=== PATIENT | female | born 1945 | race Caucasian/White ===

== ENCOUNTER 2021-01-03 08:44 | Observation (INO) ==
[~2021-01-03 08:44] MED LIST: Buffered Lidocaine 1% SYRIN 1 ml INTRADERM ONE; Dexamethasone IV 4 MG/ML VIAL 1 ml VIAL IV SLOW PU ONE; Famotidine IV 10 MG/ML 2 ml VIAL (20 mg) IV ONE; Lactated Ringers 1000 ml BAG 1,000 ML IV SCH
[2021-01-03] MEDS ORDERED: Dexamethasone IV 4 MG/ML VIAL 1 ml VIAL ONE (08:59)
[2021-01-03] MEDS ORDERED: Famotidine IV 10 MG/ML 2 ml VIAL (20 mg) ONE (09:00)
[2021-01-03] MEDS ORDERED: Succinylcholine 200 mg VIAL 20 mg/ml 10 ml VIAL (200 mg) ONE (09:23)
[2021-01-03] MEDS ORDERED: Lidocaine 2% PF 5 ML VIAL ONE (09:23)
[2021-01-03] MEDS ORDERED: fentaNYL 250 mcg/5 ml 50 MCG/ML 5 ml VIAL (250 MCG) ONE (09:23)
[2021-01-03] MEDS ORDERED: Midazolam 2 mg/2 ml VIAL 1 mg/ml 2 ml VIAL (2 mg) ONE (09:23)
[2021-01-03] MEDS ORDERED: Ondansetron 4 mg VIAL 2 MG/ML 2 ml VIAL ONE (09:23)
[2021-01-03] MEDS ORDERED: Propofol 10 MG/ML 20 ML BTL ONE ×2 (09:23→11:59)
[2021-01-03] MEDS ORDERED: Remifentanil 2 MG VIAL ONE (09:24)
[2021-01-03] MEDS ORDERED: Lidocaine 1% w EPI 1:100,000 MDV 20 ML VIAL ONE (10:58)
[2021-01-03] MEDS ORDERED: Naloxone 0.4 mg VIAL 0.4 mg/ml 1 ml VIAL IV PRN (10:59)
[2021-01-03] MEDS ORDERED: Prochlorperazine 5 mg/ml 2 ml VIAL (10 mg) IV PRN (10:59)
[2021-01-03] MEDS ORDERED: HYDROcodone/ACETAMIN 5/325 mg TAB PO PRN (10:59)
[2021-01-03] MEDS ORDERED: Lidocaine 4% TOPICAL 50 ML TOP.SOLN ONE (11:03)
[2021-01-03] MEDS ORDERED: Phenylephrine 40 mcg/mL 10mL (400mcg) SYRINGE ONE (12:07)
[2021-01-03] MEDS ORDERED: fentaNYL 100 mcg/2 ml 50 MCG/ML VIAL ONE (14:47)
[2021-01-03] MEDS: fentaNYL 100 mcg/2 ml 50 MCG/ML VIAL IV PRN ×2 (14:48→15:16)
[2021-01-03] MEDS ORDERED: Ondansetron ODT 4 mg TAB 4 MG TAB PO PRN (15:34)
[2021-01-03] MEDS ORDERED: oxyCODONE 5 mg/5 ml ORAL.SOLN UDC PO PRN ×2 (15:34→15:37)
[2021-01-03] MEDS ORDERED: Ondansetron 4 mg VIAL 2 MG/ML 2 ml VIAL IV PRN (15:34)
[2021-01-03] MEDS ORDERED: Bimatoprost 0.01% OPHTH (NF) 2.5 ML BTL BOTH EYES SCH (18:00)
[2021-01-03] MEDS: Calcium (OSCAL) 500 mg TAB PO SCH (20:57)
[2021-01-03] MEDS ORDERED: Venlafaxine XR 75 mg PO SCH (21:00)
[2021-01-04 05:14] LABS: ABS Basophils 0.1 10^3/ul (0-0.2); ABS Neutrophils 9.2 10^3/ul (1.5-7.7); Eosinophil % 0.2 %; Hematocrit 40 % (35-47); Hemoglobin 12.9 g/dL (12.0-16.0); Lymphocyte % 9.2 %; Mean Corpuscular HGB Conc 33 g/dL (31-36); Mean Corpuscular Hemoglobin 31 pg (27-31); Mean Corpuscular Volume 95 fL (80-97); Mean Platelet Volume 8.2 fL (7.4-10.4); Platelet Count 265 10^3/uL (150-450); Red Blood Count 4.18 10^6 /uL (3.70-4.87); Red Cell Distribution Width 15 % (10-15); White Blood Count 11.3 10^3/uL (3.5-10.8)
[2021-01-04 05:49] LABS: Albumin 3.7 g/dL (3.2-5.2); Albumin/Globulin Ratio 1.5 (1-3); EGFR African American 61.8 (>60); EGFR Non-African American 51.1 (>60); Globulin 2.5 g/dL (2-4); Potassium 4.1 mmol/L (3.5-5.0); Total Bilirubin 0.5 mg/dL (0.2-1.0); Total Protein 6.2 g/dL (6.4-8.9)
[2021-01-04] MEDS: Calcium (OSCAL) 500 mg TAB PO SCH ×2 (08:04→14:04)
[2021-01-04 11:56] VITALS: BP 124/75
[2021-01-04] MEDS ORDERED: NS 0.9% 500 ml BAG 500 ML IV ONE (13:10)
== END 2021-01-04 15:35 | disposition home or self-care (01) ==
LOC: OR 08:44 → SSU 08:44
PROVIDERS: ADMIT Otolaryngology; ATTEND Hospitalist

== ENCOUNTER 2021-01-17 10:47 | Observation (INO) ==
[2021-01-17] MEDS ORDERED: NS 0.9% 1000 ml BAG 1,000 ML IV ONE (14:19)
[2021-01-17] MEDS ORDERED: Clindamycin 300 MG/D5W BAG 300 MG/50 ML BAG IV ONE (14:19)
[2021-01-17] MEDS ORDERED: CLINDAMYCIN 300 MG IV ONE (14:45)
[2021-01-17] MEDS ORDERED: HYDROmorphone 1 MG/1 ML SYRINGE IV ONE (14:54)
[2021-01-17] MEDS ORDERED: Ondansetron 4 mg VIAL 2 MG/ML 2 ml VIAL IV ONE (14:54)
[2021-01-17 15:07] LABS: ABS Basophils 0.1 10^3/ul (0-0.2); ABS Eosinophils 0.1 10^3/ul (0-0.6); ABS Lymphocytes 1.2 10^3/ul (1.0-4.8); ABS Monocytes 0.7 10^3/ul (0-0.8); ABS Neutrophils 7.5 10^3/ul (1.5-7.7); Eosinophil % 1.1 %; Hematocrit 41 % (35-47); Lymphocyte % 12.5 %; Mean Corpuscular HGB Conc 34 g/dL (31-36); Mean Corpuscular Hemoglobin 32 pg (27-31); Mean Corpuscular Volume 94 fL (80-97); Platelet Count 400 10^3/uL (150-450); Red Blood Count 4.34 10^6 /uL (3.70-4.87); Red Cell Distribution Width 14 % (10-15); White Blood Count 9.5 10^3/uL (3.5-10.8)
[2021-01-17 15:24] LABS: Albumin 4.2 g/dL (3.2-5.2); Albumin/Globulin Ratio 1.3 (1-3); C Reactive Protein 46.28 mg/L (<8.01); Calcium 9.3 mg/dL (8.6-10.3); EGFR African American 70.2 (>60); EGFR Non-African American 58.1 (>60); Globulin 3.3 g/dL (2-4); Potassium 4.5 mmol/L (3.5-5.0); Total Bilirubin 0.4 mg/dL (0.2-1.0); Total Protein 7.5 g/dL (6.4-8.9)
[2021-01-17] MEDS ORDERED: Ondansetron 4 mg VIAL 2 MG/ML 2 ml VIAL IV PRN (15:45)
[2021-01-17] MEDS: Latanoprost 0.005% 2.5 ml BTL BOTH EYES SCH (18:53)
[2021-01-17] MEDS: Clindamycin 300 MG/D5W BAG 300 MG/50 ML BAG IV SCH (20:39)
[2021-01-17] MEDS: Venlafaxine XR 75 mg PO SCH (20:39)
[2021-01-18] MEDS: Clindamycin 300 MG/D5W BAG 300 MG/50 ML BAG IV SCH ×4 (03:20→20:58)
[2021-01-18 06:33] LABS: Calcium 8.7 mg/dL (8.6-10.3); Potassium 4.5 mmol/L (3.5-5.0)
[2021-01-18 06:38] LABS: EGFR African American 66.9 (>60); EGFR Non-African American 55.3 (>60)
[2021-01-18 07:07] LABS: ABS Basophils 0.1 10^3/ul (0-0.2); ABS Eosinophils 0.2 10^3/ul (0-0.6); ABS Monocytes 0.6 10^3/ul (0-0.8); ABS Neutrophils 4.8 10^3/ul (1.5-7.7); Eosinophil % 2.9 %; Hematocrit 40 % (35-47); Hemoglobin 13.1 g/dL (12.0-16.0); Lymphocyte % 14.6 %; Mean Corpuscular HGB Conc 33 g/dL (31-36); Mean Corpuscular Hemoglobin 31 pg (27-31); Mean Corpuscular Volume 95 fL (80-97); Mean Platelet Volume 7.8 fL (7.4-10.4); Platelet Count 362 10^3/uL (150-450); Red Blood Count 4.22 10^6 /uL (3.70-4.87); Red Cell Distribution Width 14 % (10-15); White Blood Count 6.7 10^3/uL (3.5-10.8)
[2021-01-18] MEDS: Latanoprost 0.005% 2.5 ml BTL BOTH EYES SCH (17:57)
[2021-01-18] MEDS: Venlafaxine XR 75 mg PO SCH (20:57)
[2021-01-19] MEDS: Clindamycin 300 MG/D5W BAG 300 MG/50 ML BAG IV SCH ×3 (03:19→14:15)
[2021-01-19 11:28] VITALS: BP 112/57
== END 2021-01-19 14:57 | disposition home or self-care (01) ==
LOC: SSU 10:47 → ED 10:47 → SSU 17:11
PROVIDERS: ADMIT Internal Medicine; ATTEND Student in an Organized Health Care Education/Training Program

== ENCOUNTER 2023-04-06 05:50 | Observation (INO) ==
[~2023-04-06 05:50] MED LIST changes: -Dexamethasone IV 4 MG/ML VIAL 1 ml VIAL IV SLOW PU ONE; -Famotidine IV 10 MG/ML 2 ml VIAL (20 mg) IV ONE; +HYDROcodone/ACETAMIN 5/325 mg TAB PO PRN; +Metoclopramide 5 MG/ML VIAL (10 mg) IV PRN; +Naloxone 0.4 mg VIAL 0.4 mg/ml 1 ml VIAL IV PRN; +Ondansetron 4 mg VIAL 2 MG/ML 2 ml VIAL IV PRN
[2023-04-06] MEDS ORDERED: ceFAZolin *3* GM in NS PREMIX 3 GM/100 ML BAG IV ONE (06:18)
[2023-04-06] MEDS ORDERED: Propofol 10 MG/ML 20 ML BTL ONE ×2 (06:48→08:31)
[2023-04-06] MEDS ORDERED: Lidocaine 2% PF 5 ML VIAL ONE (06:48)
[2023-04-06] MEDS ORDERED: Phenylephrine IV 10 MG/ML 1 ml VIAL ONE (06:52)
[2023-04-06 06:54] LABS: Rapid COVID-19 Molecular Undetected (Undetected)
[2023-04-06] MEDS ORDERED: ROPIVACAINE 5 MG/ML 30 ML BTL (0.5%) ONE ×2 (06:55→06:58)
[2023-04-06] MEDS ORDERED: fentaNYL 100 mcg/2 ml 50 MCG/ML VIAL ONE ×3 (06:58→11:01)
[2023-04-06] MEDS ORDERED: Dexamethasone IV 4 MG/ML VIAL 1 ml VIAL ONE ×2 (06:58→08:17)
[2023-04-06] MEDS ORDERED: Midazolam 2 mg/2 ml VIAL 1 mg/ml 2 ml VIAL (2 mg) ONE ×2 (06:58→08:33)
[2023-04-06] MEDS ORDERED: fentaNYL 250 mcg/5 ml 50 MCG/ML 5 ml VIAL (250 MCG) ONE (07:16)
[2023-04-06] MEDS ORDERED: HYDROmorphone 0.5 MG/0.5 ML SYRINGE ONE (07:17)
[2023-04-06] MEDS ORDERED: Sterile Water for Inj 10 ML ONE (08:03)
[2023-04-06] MEDS ORDERED: Glycopyrrolate IV 0.2 MG/ML 1 ML VIAL ONE (08:06)
[2023-04-06] MEDS ORDERED: Ondansetron 4 mg VIAL 2 MG/ML 2 ml VIAL ONE (08:17)
[2023-04-06] MEDS ORDERED: Ondansetron ODT 4 mg TAB 4 MG TAB PO PRN (09:02)
[2023-04-06] MEDS ORDERED: Magnesium Hydroxide LIQ 30 ML UDC PO PRN (09:02)
[2023-04-06] MEDS ORDERED: Lactulose 30 ml UDC PO PRN (09:02)
[2023-04-06] MEDS ORDERED: Ondansetron 4 mg VIAL 2 MG/ML 2 ml VIAL IV PRN (09:02)
[2023-04-06] MEDS ORDERED: ceFAZolin 1 GM ADVAN 1 GM in NS 0.9% 50 ML 50 ML IVPB SCH (10:00)
[2023-04-06] MEDS ORDERED: HYDROcodone/ACETAMIN 5/325 mg TAB ONE (11:01)
[2023-04-06] MEDS: fentaNYL 100 mcg/2 ml 50 MCG/ML VIAL IV PRN ×4 (11:08→11:57)
[2023-04-06] MEDS: Lactated Ringers 1000 ml BAG 1,000 ML IV SCH ×2 (13:12→23:31)
[2023-04-06] MEDS: ceFAZolin 1 GM ADVAN 1 GM in NS 0.9% 50 ML 50 ML IVPB SCH ×2 (15:45→23:32)
[2023-04-06] MEDS: Magnesium Hydroxide LIQ 30 ML UDC PO SCH (20:04)
[2023-04-06] MEDS ORDERED: Latanoprost 0.005% 2.5 ml BTL BOTH EYES SCH (21:00)
[2023-04-06] MEDS ORDERED: Venlafaxine XR 75 mg PO SCH (21:00)
[2023-04-07 06:10] LABS: Hematocrit 34.1 % (35-45); Hemoglobin 11.5 g/dL (11.5-14.3); Mean Platelet Volume 8.6 fL (7.5-11.2); Platelet Count 222 10^3/uL (150-450)
[2023-04-07 06:26] LABS: Calcium 8.6 mg/dL (8.6-10.3); Creatinine, Serum 0.96 mg/dL (0.51-0.95); Potassium 4.3 mmol/L (3.5-5.0); eGFR CKD-EPI 60.6 (>60)
[2023-04-07] MEDS: ceFAZolin 1 GM ADVAN 1 GM in NS 0.9% 50 ML 50 ML IVPB SCH (07:56)
[2023-04-07] MEDS: Magnesium Hydroxide LIQ 30 ML UDC PO SCH (08:26)
[2023-04-07] MEDS ORDERED: Vitamin THERAPEUTIC TAB PO SCH (09:00)
[2023-04-07] MEDS ORDERED: Timolol 0.5% OPTH.SOL BTL BOTH EYES SCH (09:00)
[2023-04-07] MEDS ORDERED: Cholecalciferol (VIT D3) 1,000 unit TAB PO SCH (09:00)
[2023-04-07 10:46] VITALS: BP 119/70
== END 2023-04-07 13:00 | disposition home or self-care (01) ==
LOC: AA 05:50 → INTOOBSV 05:50 → SSU 09:03
PROVIDERS: ADMIT Orthopaedic Surgery Adult Reconstructive Orthopaedic Surgery; ATTEND Orthopaedic Surgery Adult Reconstructive Orthopaedic Surgery